=== PATIENT | female | born 1960 | race Two or more races ===

== ENCOUNTER 2019-09-21 15:04 | Inpatient (IN) | payer OTHER, MEDICAID ==
[~2019-09-21] VITALS: Ht 167.6 cm; Wt 107.1 kg
[2019-09-21] MEDS ORDERED: MORPHINE SULFATE 4 MG/ML SYR/VIAL IV ONE (15:30)
[2019-09-21] MEDS ORDERED: ONDANSETRON HCL 4 MG/2 ML VIAL IV ONE (15:30)
[2019-09-21 15:59] LABS: Basophils # (auto) 0 10 ^3/uL (0-0.2); Basophils % (auto) 0.2 % (0.0-2.0); Eosinophils # (auto) 0 10 ^3/uL (0-0.8); Eosinophils % (auto) 0.6 % (0.0-7.0); Hematocrit 34.6 % (36.0-46.0); Hemoglobin 10.8 g/dL (12.2-16.2); Lymphocytes # (auto) 0.7 10 ^3/uL (0.4-5.4); Lymphocytes % (auto) 9.2 % (10.0-50.0); Mean Corpuscular Hemoglobin 22.5 pg (28.0-32.0); Mean Corpuscular Hgb Conc. 31.2 g/dL (32.0-36.0); Mean Corpuscular Volume 72.2 fL (80.0-100.0); Monocytes # (auto) 0.6 10 ^3/uL (0-1.3); Monocytes % (auto) 8.1 % (0.0-12.0); Neutrophils # (auto) 6.1 10 ^3/uL (1.6-8.6); Neutrophils % (auto) 81.9 % (37.0-80.0); Nucleated Red Blood Cells % 0.1 %; Platelet Count (auto) 130 10^3/uL (140-450); Red Cell Distribution Width 18.9 % (11.8-14.3); White Blood Cell 7.5 10^3/uL (4.4-10.8)
[2019-09-21 16:18] LABS: BUN/Creatinine Ratio 10.1; Calcium 8.3 mg/dL (8.5-10.1); Potassium 4.3 mmol/L (3.5-5.1)
[2019-09-21 16:22] LABS: Bilirubin, Total 0.5 mg/dL (0.2-1.0); Total Protein 7.7 g/dL (6.4-8.2)
[2019-09-21] MEDS ORDERED: IOHEXOL 350 MG/ML 100ML IJ ONE ×2 (19:09→20:50)
[2019-09-21] MEDS ORDERED: NITROGLYCERIN 0.4 MG SL TAB SL PRN ×3 (19:15→19:30)
[2019-09-21] MEDS ORDERED: MORPHINE SULF INJ 2 MG/ML SYRINGE 1ML IV PRN ×3 (19:15→19:30)
[2019-09-21 19:28] LABS: Magnesium 1.7 mg/dL (1.6-2.6)
[2019-09-21] MEDS ORDERED: FAMOTIDINE 20 MG TAB PO ONE (19:30)
[2019-09-21] MEDS ORDERED: ALUM & MAG HYDROX-SIMETH LIQ(MAALOX) 30 ML PO ONE (19:30)
[2019-09-21] MEDS ORDERED: ACETAMINOPHEN 325 MG TAB PO PRN (19:30)
[2019-09-21] MEDS ORDERED: FUROSEMIDE 20 MG/2 ML VIAL IV ONE (19:30)
[2019-09-21] MEDS ORDERED: ONDANSETRON HCL 4 MG/2 ML VIAL IV PRN (19:30)
[2019-09-21] MEDS ORDERED: DEXTROSE (50%) 50ML SYRG IV PRN (19:45)
[2019-09-21] MEDS ORDERED: ALPRAZolam 0.5 MG TAB PO ONE (19:45)
[2019-09-21 20:14] VITALS: BP 139/76
[2019-09-21] MEDS: ACCU-CHEK COMFORT CURVE STRIP VI SCH (21:23)
[2019-09-21] MEDS: InsuLIN REG 1unit/0.01ml Soln (100units/ml) SC SCH (21:24)
[2019-09-21] MEDS ORDERED: MAGNESIUM SULFATE 1GM/100ML 100 ML IV ONE (21:45)
[2019-09-21 22:00] VITALS: BP 139/76
[2019-09-21] MEDS: CARVEDILOL 3.125 MG TAB PO SCH (23:01)
[2019-09-21] MEDS: traZODone HCL 50 MG TAB PO SCH (23:02)
[2019-09-21] MEDS: carBAMazepine 200 MG TAB PO SCH (23:02)
[2019-09-21] MEDS: HYDROcodone-ACET 10/325MG TAB PO PRN (23:03)
[2019-09-22] MEDS: ACCU-CHEK COMFORT CURVE STRIP VI SCH ×6 (00:35→20:10)
[2019-09-22] MEDS: InsuLIN REG 1unit/0.01ml Soln (100units/ml) SC SCH ×6 (00:37→20:11)
[2019-09-22 03:12] LABS: Urine Bacteria FEW /hpf (None Seen); Urine Blood Negative /uL (Negative); Urine WBC 1 /hpf (0 - 5)
[2019-09-22 03:27] LABS: Amphetamine Screen, Urine NEGATIVE (NEGATIVE); Barbiturate Scree,Urine NEGATIVE (NEGATIVE); Benzodiazephine Screen, Urine POSITIVE (NEGATIVE); Cannabinoid Screen, Urine NEGATIVE (NEGATIVE); Cocaine Screen, Urine NEGATIVE (NEGATIVE); Opiate Scree,Urine POSITIVE (NEGATIVE); Phencyclidine Screen, Urine NEGATIVE (NEGATIVE)
[2019-09-22 05:00] VITALS: BP 105/72
[2019-09-22] MEDS: HYDROcodone-ACET 10/325MG TAB PO PRN ×2 (06:34→17:30)
[2019-09-22] MEDS: buPROPion HCL 75 MG TAB PO SCH ×2 (06:34→19:47)
[2019-09-22] MEDS: FUROSEMIDE 20 MG/2 ML VIAL IV SCH ×2 (06:34→17:36)
[2019-09-22 07:53] LABS: Magnesium 2.1 mg/dL (1.6-2.6)
[2019-09-22 08:01] LABS: CRP High Sensitivity 3.12 mg/dL (< 0.3); Cholesterol 152 mg/dL (< 200); Creatine Kinase IFCC 103 U/L (26-192); HDL Cholesterol 66 mg/dL (40-59); LDL Cholesterol 73 mg/dL (< 100); Lactate Dehydrogenase 249 U/L (84-246); Phosphorus 3.9 mg/dL (2.5-4.90); Triglycerides 102 mg/dL (< 150)
[2019-09-22 08:11] LABS: Ferritin 7.1 ng/mL (10-322); INR 1.07 (0.9-1.15); Partial Thromboplastin Time 22.2 sec (23.64-32.05); Prolactin 11.18 ng/mL (2.8-29.2)
[2019-09-22] MEDS: FAMOTIDINE 20 MG TAB PO SCH ×2 (08:57→21:14)
[2019-09-22] MEDS: ASPirin 81 mg TAB PO SCH (08:57)
[2019-09-22] MEDS: ENOXAPARIN SOD 40 MG/0.4 ML SYRINGE SC SCH (08:58)
[2019-09-22] MEDS: carBAMazepine 200 MG TAB PO SCH ×2 (08:58→21:14)
[2019-09-22] MEDS: DOCUSATE SOD 100 MG CAP PO SCH (08:59)
[2019-09-22 09:00] VITALS: BP 110/70
[2019-09-22] MEDS: LISINOPRIL 5 MG TAB PO SCH (09:08)
[2019-09-22] MEDS: CARVEDILOL 3.125 MG TAB PO SCH ×2 (09:09→22:00)
[2019-09-22 13:46] VITALS: BP 108/66
[2019-09-22 16:41] VITALS: BP 100/58
[2019-09-22] MEDS: traZODone HCL 50 MG TAB PO SCH (21:14)
[2019-09-22 22:00] VITALS: BP 102/55
[2019-09-22] MEDS: ALPRAZolam 0.5 MG TAB PO SCH (22:15)
[2019-09-22] MEDS ORDERED: DEXTROSE (50%) 50ML SYRG IV PRN (23:00)
[2019-09-23 05:00] VITALS: BP 118/61
[2019-09-23 05:54] LABS: Basophils # (auto) 0 10 ^3/uL (0-0.2); Basophils % (auto) 0.2 % (0.0-2.0); Eosinophils # (auto) 0.2 10 ^3/uL (0-0.8); Mean Corpuscular Hemoglobin 22.7 pg (28.0-32.0); Monocytes # (auto) 0.8 10 ^3/uL (0-1.3); Neutrophils # (auto) 5.5 10 ^3/uL (1.6-8.6); White Blood Cell 7.6 10^3/uL (4.4-10.8)
[2019-09-23 05:55] LABS: Hematocrit 37.1 % (36.0-46.0); Hemoglobin 11.7 g/dL (12.2-16.2); Lymphocytes % (auto) 13.6 % (10.0-50.0); Mean Corpuscular Hgb Conc. 31.5 g/dL (32.0-36.0); Mean Corpuscular Volume 72.1 fL (80.0-100.0); Monocytes % (auto) 10.4 % (0.0-12.0); Neutrophils % (auto) 72.8 % (37.0-80.0); Nucleated Red Blood Cells % 0.2 %; Platelet Count (auto) 154 10^3/uL (140-450); Red Blood Cells 5.14 10^6/uL (4.0-5.20)
[2019-09-23 06:17] LABS: BUN/Creatinine Ratio 17.7; Calcium 8.7 mg/dL (8.5-10.1); Potassium 3.7 mmol/L (3.5-5.1)
[2019-09-23] MEDS: ACCU-CHEK COMFORT CURVE STRIP VI SCH ×4 (06:58→22:34)
[2019-09-23] MEDS: buPROPion HCL 75 MG TAB PO SCH ×2 (06:58→18:41)
[2019-09-23] MEDS: InsuLIN REG 1unit/0.01ml Soln (100units/ml) SC SCH ×3 (07:05→16:56)
[2019-09-23] MEDS: HYDROcodone-ACET 10/325MG TAB PO PRN ×2 (07:06→16:47)
[2019-09-23 09:00] VITALS: BP 136/58
[2019-09-23] MEDS: DOCUSATE SOD 100 MG CAP PO SCH (10:39)
[2019-09-23] MEDS: FAMOTIDINE 20 MG TAB PO SCH ×2 (10:39→22:20)
[2019-09-23] MEDS: ENOXAPARIN SOD 40 MG/0.4 ML SYRINGE SC SCH (10:39)
[2019-09-23] MEDS: carBAMazepine 200 MG TAB PO SCH ×2 (10:40→22:21)
[2019-09-23] MEDS: ASPirin 81 mg TAB PO SCH (10:40)
[2019-09-23] MEDS: LISINOPRIL 5 MG TAB PO SCH (10:41)
[2019-09-23 13:00] VITALS: BP 102/60
[2019-09-23] MEDS ORDERED: SPIR100T4 PO (16:09)
[2019-09-23] MEDS ORDERED: GABA100C9 PO (16:09)
[2019-09-23] MEDS ORDERED: ENAL2.5T2 PO (16:09)
[2019-09-23] MEDS ORDERED: PANT40TA2 PO (16:09)
[2019-09-23] MEDS ORDERED: DULO60CA PO (16:09)
[2019-09-23] MEDS ORDERED: FURO1TAB31 PO (16:09)
[2019-09-23] MEDS ORDERED: TRAZ100T3 PO (16:09)
[2019-09-23] MEDS ORDERED: METH-532 PO (16:09)
[2019-09-23] MEDS ORDERED: GLIP5TAB12 PO (16:09)
[2019-09-23] MEDS ORDERED: ALPR2TAB6 PO (16:09)
[2019-09-23] MEDS ORDERED: CARB100T PO (16:09)
[2019-09-23] MEDS ORDERED: METF-371 PO (16:09)
[2019-09-23 17:00] VITALS: BP 119/72
[2019-09-23] MEDS ORDERED: LORazepam 2MG/ML-1ML VIAL IV PRN (20:45)
[2019-09-23 22:00] VITALS: BP 120/62
[2019-09-23] MEDS ORDERED: InsuLIN REG 1unit/0.01ml Soln (100units/ml) SC SCH (22:00)
[2019-09-23] MEDS: ALPRAZolam 0.5 MG TAB PO SCH (22:21)
[2019-09-23] MEDS: traZODone HCL 50 MG TAB PO SCH (22:21)
[2019-09-23] MEDS: METHOCARBAMOL 500 MG TAB PO SCH (22:34)
[2019-09-24] MEDS: HYDROcodone-ACET 10/325MG TAB PO PRN ×3 (02:59→17:16)
[2019-09-24 05:00] VITALS: BP 123/73
[2019-09-24] MEDS: buPROPion HCL 75 MG TAB PO SCH ×2 (06:00→18:50)
[2019-09-24] MEDS: ACCU-CHEK COMFORT CURVE STRIP VI SCH ×3 (06:42→16:48)
[2019-09-24] MEDS: InsuLIN REG 1unit/0.01ml Soln (100units/ml) SC SCH ×3 (06:43→16:55)
[2019-09-24 07:14] LABS: Hemoglobin 10.4 g/dL (12.2-16.2)
[2019-09-24 07:17] LABS: Hematocrit 32.8 % (36.0-46.0)
[2019-09-24] MEDS: FERROUS SULFATE 325 MG TAB PO SCH ×4 (07:55→16:54)
[2019-09-24 09:00] VITALS: BP_SYST 109; BP_SYST 115; BP_DIAS 59; BP_DIAS 80
[2019-09-24] MEDS: DOCUSATE SOD 100 MG CAP PO SCH (09:33)
[2019-09-24] MEDS: ENOXAPARIN SOD 40 MG/0.4 ML SYRINGE SC SCH (09:33)
[2019-09-24] MEDS: FAMOTIDINE 20 MG TAB PO SCH (09:33)
[2019-09-24] MEDS: ASPirin 81 mg TAB PO SCH (09:34)
[2019-09-24] MEDS: LISINOPRIL 5 MG TAB PO SCH (09:36)
[2019-09-24] MEDS: carBAMazepine 200 MG TAB PO SCH (09:38)
[2019-09-24] MEDS: METHOCARBAMOL 500 MG TAB PO SCH (09:38)
[2019-09-24 13:00] VITALS: BP 108/77
[2019-09-24 15:52] VITALS: BP 108/72
[2019-09-24 16:45] VITALS: BP 111/61
[2019-09-24] MEDS ORDERED: TOPIRAMATE 25 MG TAB PO SCH (22:00)
== END 2019-09-24 19:20 | disposition home or self-care (01) | DRG 88 ==
LOC: ER 15:04 → EDBD 15:04 → EDSEX 15:04 → TELE 15:05 → TELE-WESTW 22:07
PROVIDERS: ADMIT Hospitalist; ATTEND Internal Medicine
DX: S06.0X0A Concussion without loss of consciousness, initial encounter (principal); I50.23 Acute on chronic systolic (congestive) heart failure; J96.01 Acute respiratory failure with hypoxia; E44.1 Mild protein-calorie malnutrition; J98.11 Atelectasis; E66.01 Morbid (severe) obesity due to excess calories; S60.512A Abrasion of left hand, initial encounter; S30.0XXA Contusion of lower back and pelvis, initial encounter; S20.229A Contusion of unspecified back wall of thorax, initial encounter; S16.1XXA Strain of muscle, fascia and tendon at neck level, initial encounter; F32.9 Major depressive disorder, single episode, unspecified; E78.5 Hyperlipidemia, unspecified; G40.909 Epilepsy, unspecified, not intractable, without status epilepticus; F41.9 Anxiety disorder, unspecified; E11.65 Type 2 diabetes mellitus with hyperglycemia; G89.29 Other chronic pain; G43.B0 Ophthalmoplegic migraine, not intractable; F17.200 Nicotine dependence, unspecified, uncomplicated; I11.0 Hypertensive heart disease with heart failure; H53.2 Diplopia; K74.60 Unspecified cirrhosis of liver; E11.21 Type 2 diabetes mellitus with diabetic nephropathy; Z90.49 Acquired absence of other specified parts of digestive tract; Z83.3 Family history of diabetes mellitus; Z82.3 Family history of stroke; Z90.710 Acquired absence of both cervix and uterus; Z80.0 Family history of malignant neoplasm of digestive organs; Y93.89 Activity, other specified; Y99.8 Other external cause status; V48.5XXA Car driver injured in noncollision transport accident in traffic accident, initial encounter; Y92.410 Unspecified street and highway as the place of occurrence of the external cause; Z68.38 Body mass index [BMI] 38.0-38.9, adult
CPT/HCPCS: 36415; 70450; 70551; 71045; 71275; 72125; 72131; 72141; 72192; 80048; 80053; 80061; 80307; 81001; 82085; 82533; 82550; 82607; 82728; 82962; 83036; 83540; 83550; 83615; 83735; 83880; 84100; 84146; 84443; 84484; 85014; 85018; 85025; 85045; 85379; 85610; 85652; 85730; 86141; 93306; 96374; 96375; 97163; G0378; J1815; J2405

== ENCOUNTER 2019-12-25 22:02 | Emergency (ER) | payer OTHER, MEDICAID ==
[~2019-12-25] VITALS: Ht 172.7 cm; Wt 45.4 kg
[~2019-12-25 22:02] MED LIST: ALPR2TAB6 PO; CARB100T PO; DULO60CA PO; ENAL2.5T11 PO; FURO1TAB31 PO; GABA100C9 PO; GLIP5TAB12 PO; METF-371 PO; METH-532 PO; PANT40TA2 PO; SPIR100T4 PO; TRAZ100T3 PO
[2019-12-25 23:05] LABS: Basophils # (auto) 0 10 ^3/uL (0-0.2); Basophils % (auto) 0.1 % (0.0-2.0); Eosinophils # (auto) 0.1 10 ^3/uL (0-0.8); Eosinophils % (auto) 0.9 % (0.0-7.0); Hematocrit 41.5 % (36.0-46.0); Hemoglobin 13.6 g/dL (12.2-16.2); Lymphocytes # (auto) 0.7 10 ^3/uL (0.4-5.4); Mean Corpuscular Hemoglobin 28.7 pg (28.0-32.0); Mean Corpuscular Hgb Conc. 32.7 g/dL (32.0-36.0); Mean Corpuscular Volume 87.9 fL (80.0-100.0); Monocytes # (auto) 0.7 10 ^3/uL (0-1.3); Monocytes % (auto) 9.8 % (0.0-12.0); Neutrophils # (auto) 5.2 10 ^3/uL (1.6-8.6); Neutrophils % (auto) 78.2 % (37.0-80.0); Platelet Count (auto) 112 10^3/uL (140-450); Red Blood Cells 4.73 10^6/uL (4.0-5.20); Red Cell Distribution Width 21.4 % (11.8-14.3); White Blood Cell 6.7 10^3/uL (4.4-10.8)
[2019-12-25 23:10] LABS: Albumin 3.3 g/dL (3.4-5.0); Anion Gap 6 (5-15); Blood Urea Nitrogen 9 mg/dL (7-18); Calcium 8.5 mg/dL (8.5-10.1); Carbon Dioxide 32 mmol/L (21-32); Chloride 91 mmol/L (98-107); Potassium 3.5 mmol/L (3.5-5.1); Sodium 129 mmol/L (136-145)
[2019-12-25 23:14] LABS: INR 1.01 (0.9-1.15); Partial Thromboplastin Time 26.2 sec (23.64-32.05)
[2019-12-25 23:19] LABS: Alanine Aminotransferase 60 U/L (13-56); Alkaline Phosphatase 184 U/L (45-117); Aspartate Aminotransferase 37 U/L (15-37); BUN/Creatinine Ratio 9.2; Bilirubin, Total 0.4 mg/dL (0.2-1.0); GFR African American 74 mL/min; GFR Non-African American 62 mL/min; Total Protein 8.2 g/dL (6.4-8.2)
[2019-12-25 23:24] LABS: Glucose 408 mg/dL (74-106)
[2019-12-26] MEDS ORDERED: InsuLIN REG 1unit/0.01ml Soln (100units/ml) IV ONE (00:30)
[2019-12-26] MEDS ORDERED: SODIUM CHLORIDE 0.9% 500 ML IV ONE (00:30)
[2019-12-26 05:45] VITALS: BP 147/73
== END 2019-12-26 05:59 | disposition home or self-care (01) ==
LOC: EDBD 22:02 → ER 22:08
DX: R07.89 Other chest pain (principal); E11.65 Type 2 diabetes mellitus with hyperglycemia; I50.9 Heart failure, unspecified; Z90.49 Acquired absence of other specified parts of digestive tract; Z90.710 Acquired absence of both cervix and uterus; Z79.899 Other long term (current) drug therapy
CPT/HCPCS: 36415; 71045; 80053; 82962; 83735; 83880; 84443; 84484; 85025; 85610; 85730; 93005; 96361; 96374; 99285; J1815; J7030